=== PATIENT | female | born 1975 | race Caucasian/White ===

== ENCOUNTER 2022-05-27 14:18 | Inpatient (IN) | payer MEDICAID ==
[~2022-05-27] VITALS: Ht 162.6 cm; Wt 88.2 kg
[~2022-05-27 14:18] MED LIST: CLOZ100T68 PO; LITH300C3 PO; LITH600C PO; LURA80TA2 PO; NITR100C4 PO
[2022-05-29 06:21] VITALS: BP 124/78
[2022-05-29] MEDS ORDERED: INFLUENZA VIRUS VACCINE QVS 2022-23 (6MO+)/PF 60 MCG/0.5 ML SYRINGE IM. ONE (06:45)
[2022-05-29 08:51] LABS: GLUCOMETER DEV NAME(LOC) POC.BV
[2022-05-29] MEDS: LORazepam 2 MG TABLET PO PRN ×2 (08:59→17:46)
[2022-05-29] MEDS: LITHIUM CARBONATE 300 MG CAPSULE PO SCH (13:39)
[2022-05-29] MEDS ORDERED: MAGNESIUM HYDROXIDE SUSPENSION 30 ML UDCUP PO PRN (15:45)
[2022-05-29] MEDS ORDERED: MAG HYDROX/AL HYDROX/SIMETH ES 30 ML SUSPENSION UDCUP PO PRN (15:45)
[2022-05-29] MEDS ORDERED: PETROLATUM,WHITE 28 GM JELLY TP PRN (15:45)
[2022-05-29] MEDS ORDERED: ALBUTEROL SULFATE HFA 90 MCG/PUFF 8 GM INHALER IH PRN (15:45)
[2022-05-29] MEDS ORDERED: LOPERAMIDE HCL 2 MG CAPSULE PO PRN (15:45)
[2022-05-29] MEDS ORDERED: ACETAMINOPHEN 325 MG TABLET PO PRN (15:45)
[2022-05-29] MEDS ORDERED: CloNIDine HCL 0.1 MG TABLET PO PRN (15:45)
[2022-05-29] MEDS ORDERED: DOCUSATE SODIUM 100 MG CAPSULE PO PRN (15:45)
[2022-05-29] MEDS ORDERED: IBUPROFEN 400 MG TABLET PO PRN (15:45)
[2022-05-29] MEDS ORDERED: ONDANSETRON HCL 4 MG TABLET PO PRN (15:45)
[2022-05-29] MEDS ORDERED: GuaiFENesin/D-METHORPHAN [SUGAR-FREE] 200-20MG/10 ML SYRUP UDCUP PO PRN (15:45)
[2022-05-29] MEDS: NICOTINE 14 MG/24 HOUR PATCH TD PRN (17:43)
[2022-05-29 20:13] VITALS: BP 106/64
[2022-05-29] MEDS: LURASIDONE HCL 80 MG TABLET PO SCH (20:45)
[2022-05-29] MEDS: CloZAPine 100 MG TABLET PO SCH (20:45)
[2022-05-29] MEDS: LITHIUM CARBONATE 600 MG CAPSULE PO SCH (20:45)
[2022-05-29] MEDS: ZOLPIDEM TARTRATE 10 MG TABLET PO PRN (20:45)
[2022-05-30 07:28] LABS: BASOPHILS % (AUTO) 0.7 % (0.0-2.0); EOSINOPHILS % (AUTO) 0 % (1.0-6.0); HEMATOCRIT 34.9 % (36-46); HEMOGLOBIN 10.7 g/dL (12.0-16.0); LYMPHOCYTES # (AUTO) 1.4 K/uL (1.0-4.8); LYMPHOCYTES % (AUTO) 18.1 % (22.0-44.0); MEAN CORPUSCULAR HEMOGLOBIN 21.7 pg (26.0-34.0); MEAN CORPUSCULAR HGB CONC 30.8 G/dL (31.0-37.0); MEAN CORPUSCULAR VOLUME 71 fL (80-100); MONOCYTES # (AUTO) 0.8 K/uL (0.1-1.0); MONOCYTES % (AUTO) 9.8 % (2.0-9.0); NEUTROPHILS # (AUTO) 5.5 K/uL (1.8-7.7); NEUTROPHILS % (AUTO) 71.4 % (40.0-70.0); PLATELET COUNT (AUTO) 270 K/uL (150-450); RED BLOOD CELL COUNT(AUTO) 4.94 MIL/uL (4.00-5.20); RED CELL DISTRIBUTION WIDTH 18.5 % (11.5-14.5)
[2022-05-30] MEDS: LITHIUM CARBONATE 300 MG CAPSULE PO SCH (08:16)
[2022-05-30] MEDS: LORazepam 2 MG TABLET PO PRN (08:16)
[2022-05-30] MEDS: CloZAPine 100 MG TABLET PO SCH ×2 (08:16→20:11)
[2022-05-30 08:26] LABS: ALANINE AMINOTRANSFERASE 22 U/L (12-78); ALBUMIN 3.4 g/dL (3.4-5.0); ALKALINE PHOSPHATASE 72 U/L (46-116); ANION GAP 5 mmol/L (8-16); ASPARTATE AMINOTRANSFERASE 15 U/L (15-37); BILIRUBIN,TOTAL 0.2 mg/dL (0.1-1.0); CALCIUM, TOTAL 8.9 mg/dL (8.8-10.5); CARBON DIOXIDE 26 mmol/L (22-29); CHLORIDE 104 mmol/L (98-107); CHOL/HDL RATIO 2.3 (3.9-5.7); CHOLESTEROL 125 mg/dL (131-200); CREATININE 0.53 mg/dL (0.60-1.30); FREE T4 (FREE THYROXINE) 1.12 ng/dL (0.76-1.46); GLOMERULAR FILTR. RATE CALC > 60 mL/min (>60); GLUCOSE,RANDOM 96 mg/dL (70-110); HDL CHOLESTEROL 55 mg/dL (40-60); LDL CHOL (CALC.) 60 mg/dL (0-130); POTASSIUM 4.1 mmol/L (3.5-5.1); SODIUM SERUM 135 mmol/L (136-145); THYROID STIMULATING HORMONE 2.36 uIU/mL (0.36-3.74); TOTAL PROTEIN, SERUM 6.6 g/dL (6.4-8.2); TRIGLYCERIDES 48 mg/dL (15-150); UREA NITROGEN, BLOOD 11 mg/dL (7-18)
[2022-05-30 09:11] LABS: HEMOGLOBIN A1C 5.2 % (3.8-5.6)
[2022-05-30] MEDS: LURASIDONE HCL 80 MG TABLET PO SCH (20:11)
[2022-05-30] MEDS: LITHIUM CARBONATE 600 MG CAPSULE PO SCH (20:11)
[2022-05-30 20:17] VITALS: BP 118/76
[2022-05-31 08:47] VITALS: BP 120/84
[2022-05-31] MEDS: LITHIUM CARBONATE 300 MG CAPSULE PO SCH (08:53)
[2022-05-31] MEDS: CloZAPine 100 MG TABLET PO SCH ×2 (08:53→20:56)
[2022-05-31] MEDS: LORazepam 2 MG TABLET PO PRN ×2 (08:53→20:56)
[2022-05-31] MEDS: NICOTINE 14 MG/24 HOUR PATCH TD PRN (18:01)
[2022-05-31] MEDS: LURASIDONE HCL 80 MG TABLET PO SCH (20:56)
[2022-05-31] MEDS: ZOLPIDEM TARTRATE 10 MG TABLET PO PRN (20:56)
[2022-05-31] MEDS: LITHIUM CARBONATE 600 MG CAPSULE PO SCH (20:56)
[2022-06-01] MEDS ORDERED: NICOTINE 21 MG/24 HOUR PATCH TD PRN
[2022-06-01 01:44] VITALS: BP 149/77
[2022-06-01 08:46] VITALS: BP 106/68
[2022-06-01] MEDS: CloZAPine 100 MG TABLET PO SCH ×2 (09:23→20:03)
[2022-06-01] MEDS: LITHIUM CARBONATE 300 MG CAPSULE PO SCH (09:23)
[2022-06-01] MEDS: LURASIDONE HCL 80 MG TABLET PO SCH (20:03)
[2022-06-01] MEDS: LITHIUM CARBONATE 600 MG CAPSULE PO SCH (20:03)
[2022-06-01] MEDS: ZOLPIDEM TARTRATE 10 MG TABLET PO PRN (20:43)
[2022-06-01] MEDS: LORazepam 2 MG TABLET PO PRN (20:43)
[2022-06-02 08:35] VITALS: BP 91/52
[2022-06-02] MEDS: CloZAPine 100 MG TABLET PO SCH ×2 (08:37→20:03)
[2022-06-02] MEDS: LITHIUM CARBONATE 300 MG CAPSULE PO SCH (08:37)
[2022-06-02 10:00] VITALS: BP 108/64
[2022-06-02 20:03] VITALS: BP 105/63
[2022-06-02] MEDS: LURASIDONE HCL 80 MG TABLET PO SCH (20:03)
[2022-06-02] MEDS: LITHIUM CARBONATE 600 MG CAPSULE PO SCH (20:03)
[2022-06-02] MEDS: ZOLPIDEM TARTRATE 10 MG TABLET PO PRN (21:37)
[2022-06-03 08:10] VITALS: BP 105/61
[2022-06-03] MEDS: LITHIUM CARBONATE 300 MG CAPSULE PO SCH (08:32)
[2022-06-03] MEDS: CloZAPine 100 MG TABLET PO SCH (08:32)
[2022-06-03] MEDS: LORazepam 2 MG TABLET PO PRN (09:57)
[2022-06-03] MEDS ORDERED: CLOZ100T68 PO (11:08)
== END 2022-06-03 15:45 | disposition home or self-care (01) | DRG 750 ==
LOC: B3A 05-29 05:00
PROVIDERS: ADMIT Psychiatry & Neurology Child & Adolescent Psychiatry; ATTEND Psychiatry & Neurology Child & Adolescent Psychiatry
DX: F20.9 Schizophrenia, unspecified (principal); E03.9 Hypothyroidism, unspecified; E66.9 Obesity, unspecified; E78.5 Hyperlipidemia, unspecified; Z20.822 Contact with and (suspected) exposure to COVID-19; F19.10 Other psychoactive substance abuse, uncomplicated; Z68.33 Body mass index [BMI] 33.0-33.9, adult
CPT/HCPCS: 80053; 80061; 80178; 83036; 84439; 84443; 84703; 85025

== ENCOUNTER 2023-01-05 00:48 | Emergency (ER) | payer MEDICAID, OTHER ==
[~2023-01-05] VITALS: Ht 167.6 cm; Wt 80.0 kg
[~2023-01-05 00:48] MED LIST changes: -NITR100C4 PO
[2023-01-05 01:00] VITALS: BP 128/93; PULSE 67; RESP 18; TEMP 98.2
== END 2023-01-05 01:27 | disposition left against medical advice (07) ==
LOC: EMS 00:50
DX: F41.9 Anxiety disorder, unspecified (principal); Z53.21 Procedure and treatment not carried out due to patient leaving prior to being seen by health care provider
CPT/HCPCS: 99281; Z7502

== ENCOUNTER 2023-10-09 03:38 | Inpatient (IN) | payer MEDICAID ==
[~2023-10-09] VITALS: Ht 165.1 cm; Wt 74.8 kg
[~2023-10-09 03:38] MED LIST changes: +CLOZ100T12 PO; -CLOZ100T68 PO
[2023-10-09] MEDS ORDERED: LOPERAMIDE HCL 2 MG CAPSULE PO PRN ×2 (10:30→10:45)
[2023-10-09] MEDS ORDERED: CloNIDine HCL 0.1 MG TABLET PO PRN (10:30)
[2023-10-09] MEDS ORDERED: MAGNESIUM HYDROXIDE SUSPENSION 30 ML UDCUP PO PRN (10:30)
[2023-10-09] MEDS ORDERED: ACETAMINOPHEN 325 MG TABLET PO PRN (10:30)
[2023-10-09] MEDS ORDERED: DOCUSATE SODIUM 100 MG CAPSULE PO PRN (10:30)
[2023-10-09] MEDS ORDERED: IBUPROFEN 600 MG TABLET PO PRN (10:30)
[2023-10-09] MEDS ORDERED: BENZOCAINE/MENTHOL LOZENGE PO PRN (10:30)
[2023-10-09] MEDS ORDERED: ALBUTEROL SULFATE HFA 90 MCG/PUFF 8 GM INHALER IH PRN (10:30)
[2023-10-09] MEDS ORDERED: BACITRACIN 28 GM OINTMENT TP PRN (10:30)
[2023-10-09] MEDS ORDERED: PETROLATUM,WHITE 28 GM JELLY TP PRN (10:30)
[2023-10-09] MEDS ORDERED: ONDANSETRON HCL 4 MG TABLET PO PRN (10:30)
[2023-10-09] MEDS ORDERED: OMEPRAZOLE 20 MG CAPSULE PO PRN (10:30)
[2023-10-09] MEDS ORDERED: PROMETHAZINE HCL 25 MG TABLET PO PRN (10:45)
[2023-10-09] MEDS ORDERED: GuaiFENesin/D-METHORPHAN [SUGAR-FREE] 200-20MG/10 ML SYRUP UDCUP PO PRN (10:45)
[2023-10-09] MEDS ORDERED: TUBERCULIN, PURIFIED PROTEIN DERIVATIVE 5 TU/0.1 ML SYRINGE ID ONE (10:45)
[2023-10-09 14:26] VITALS: BP 103/75; PULSE 77; RESP 16; TEMP 97.8; O2SAT 100
[2023-10-09] MEDS: LORazepam 2 MG TABLET PO PRN (16:22)
[2023-10-09] MEDS: THIAMINE 100 MG TABLET PO SCH (16:26)
[2023-10-09 20:00] VITALS: BP 110/62; PULSE 89; RESP 17; TEMP 97.6; O2SAT 99
[2023-10-09] MEDS: DIVALPROEX SODIUM 500 MG ER TABLET PO SCH (21:16)
[2023-10-09] MEDS: MELATONIN 5 MG TABLET PO SCH (21:16)
[2023-10-09] MEDS: CloZAPine 100 MG TABLET PO SCH (21:16)
[2023-10-10 08:29] LABS: BASOPHILS % (AUTO) 0.7 % (0.0-2.0); EOSINOPHILS % (AUTO) 1.5 % (1.0-6.0); HEMATOCRIT 41.7 % (36-46); HEMOGLOBIN 13.6 g/dL (12.0-16.0); LYMPHOCYTES # (AUTO) 1.8 K/uL (1.0-4.8); LYMPHOCYTES % (AUTO) 27.5 % (22.0-44.0); MEAN CORPUSCULAR HEMOGLOBIN 29.5 pg (26.0-34.0); MEAN CORPUSCULAR HGB CONC 32.6 G/dL (31.0-37.0); MEAN CORPUSCULAR VOLUME 90 fL (80-100); MONOCYTES # (AUTO) 0.7 K/uL (0.1-1.0); MONOCYTES % (AUTO) 10.6 % (2.0-9.0); NEUTROPHILS % (AUTO) 59.7 % (40.0-70.0); PLATELET COUNT (AUTO) 312 K/uL (150-450); RED BLOOD CELL COUNT(AUTO) 4.62 MIL/uL (4.00-5.20); RED CELL DISTRIBUTION WIDTH 16.1 % (11.5-14.5); WHITE BLOOD COUNT (AUTO) 6.7 K/uL (4.5-11.0)
[2023-10-10 08:37] LABS: HEMOGLOBIN A1C 5.2 % (3.8-5.6)
[2023-10-10 08:54] VITALS: BP 125/76; PULSE 90; RESP 18; TEMP 97.8; O2SAT 97
[2023-10-10 08:58] LABS: ALANINE AMINOTRANSFERASE 22 U/L (12-78); ALBUMIN 2.8 g/dL (3.4-5.0); ALKALINE PHOSPHATASE 93 U/L (46-116); ANION GAP 6 mmol/L (8-16); ASPARTATE AMINOTRANSFERASE 16 U/L (15-37); BILIRUBIN,TOTAL 0.3 mg/dL (0.1-1.0); CALCIUM, TOTAL 8.5 mg/dL (8.8-10.5); CARBON DIOXIDE 27 mmol/L (22-29); CHLORIDE 104 mmol/L (98-107); CHOL/HDL RATIO 2.9 (3.9-5.7); CHOLESTEROL 140 mg/dL (131-200); CREATININE 0.61 mg/dL (0.60-1.30); FREE T4 (FREE THYROXINE) 1.09 ng/dL (0.76-1.46); GLOMERULAR FILTR. RATE CALC > 60 mL/min (>60); GLUCOSE,RANDOM 76 mg/dL (70-110); HCG,QUANTITATIVE < 1 mIU/mL (0-6); HDL CHOLESTEROL 49 mg/dL (40-60); LDL CHOL (CALC.) 75 mg/dL (0-130); POTASSIUM 4.1 mmol/L (3.5-5.1); SODIUM SERUM 137 mmol/L (136-145); THYROID STIMULATING HORMONE 1.44 uIU/mL (0.36-3.74); TOTAL PROTEIN, SERUM 6.5 g/dL (6.4-8.2); TRIGLYCERIDES 80 mg/dL (15-150); UREA NITROGEN, BLOOD 12 mg/dL (7-18)
[2023-10-10] MEDS: MULTIVITAMINS WITH MINERALS, THERAPEUTIC TABLET PO SCH (09:26)
[2023-10-10] MEDS: FOLIC ACID 1 MG TABLET PO SCH (09:26)
[2023-10-10 09:31] LABS: APPEARANCE,URINE TURBID (CLEAR); BILIRUBIN,URINE NEGATIVE (NEGATIVE); COLOR,URINE ORANGE (YELLOW); GLUCOSE, URINE (UA) NEGATIVE (NEGATIVE); KETONES,URINE NEGATIVE (NEGATIVE); LEUKOCYTE ESTERASE ,URINE SMALL (NEGATIVE); NITRATE,URINE NEGATIVE (NEGATIVE); OCCULT BLOOD,URINE TRACE (NEGATIVE); PH,URINE 5.5 (5.0-8.0); PROTEIN,URINE 30-70 mg/dL (NEGATIVE); SPECIFIC GRAVITIY, URINE 1.034 (1.003-1.030); UROBILINOGEN,URINE <=1.0 mg/dL (<=1.0)
[2023-10-10 09:53] LABS: RBC,URINE None Seen /HPF (0-2)
[2023-10-10 09:54] LABS: AMORPHOUS SEDIMENT,UR Many /LPF (None Seen); BACTERIA,URINE Few /HPF (None Seen); SQUAMOUS EPITHELIAL CELL,UR Few /LPF (None Seen); WBC,URINE 0-2 /HPF (0-5)
[2023-10-10] MEDS: LITHIUM CARBONATE 300 MG CAPSULE PO SCH (16:17)
[2023-10-10 19:50] LABS: GLUCOMETER DEV NAME(LOC) POC.BV; POC SARS-COV2 AG, FIA NEGATIVE (NEGATIVE)
[2023-10-10 20:43] VITALS: BP 114/86; PULSE 85; RESP 18; TEMP 98.4; O2SAT 100
[2023-10-11 08:47] VITALS: BP 120/86; PULSE 94; RESP 18; TEMP 97.5; O2SAT 97
[2023-10-11] MEDS ORDERED: CloZAPine 25 MG TABLET PO SCH (09:00)
[2023-10-11] MEDS: MAG HYDROX/ALUMINUM HYD/SIMETH ES 30 ML SUSPENSION UDCUP PO PRN (18:01)
[2023-10-11 20:20] VITALS: BP 111/81; PULSE 97; RESP 18; TEMP 97.4; O2SAT 98
[2023-10-12 08:41] VITALS: BP 118/67; PULSE 85; RESP 18; TEMP 98.1; O2SAT 96
[2023-10-12] MEDS ORDERED: CloZAPine 25 MG TABLET PO SCH ×2 (09:00→21:00)
[2023-10-12 20:36] VITALS: BP 119/50; PULSE 85; RESP 18; TEMP 98.3; O2SAT 97
[2023-10-12] MEDS: ZOLPIDEM TARTRATE 10 MG TABLET PO PRN (23:00)
[2023-10-13 08:12] LABS: ALCOHOL, URINE DRUG SCREEN NEGATIVE (NEGATIVE); AMPHET/METH SCREEN,URINE NEGATIVE (NEGATIVE); BARBITURATE SCREEN, URINE NEGATIVE (NEGATIVE); BENZODIAZEPINES SCREEN,URINE NEGATIVE (NEGATIVE); CANNABINOID SCREEN,URINE NEGATIVE (NEGATIVE); COCAINE SCREEN,URINE NEGATIVE (NEGATIVE); METHADONE SCREEN, URINE NEGATIVE (NEGATIVE); OPIATE SCREEN,URINE NEGATIVE (NEGATIVE); PHENCYCLIDINE SCREEN,URINE NEGATIVE (NEGATIVE)
[2023-10-13 08:28] VITALS: BP 114/66; PULSE 86; RESP 18; TEMP 98; O2SAT 98
[2023-10-13] MEDS ORDERED: CloZAPine 25 MG TABLET PO SCH ×2 (09:00→21:00)
[2023-10-13 20:38] VITALS: BP 112/81; PULSE 94; RESP 18; TEMP 98.4; O2SAT 98
[2023-10-14 08:50] VITALS: BP 108/67; PULSE 86; RESP 17; TEMP 97.7; O2SAT 97
[2023-10-14] MEDS ORDERED: CloZAPine 25 MG TABLET PO SCH (09:00)
[2023-10-14 20:41] VITALS: BP 104/71; PULSE 87; RESP 16; TEMP 97.7; O2SAT 98
[2023-10-15 09:12] VITALS: BP 108/65; PULSE 75; RESP 17; TEMP 96.7; O2SAT 97
[2023-10-15 19:06] LABS: CLOZAPINE & NORCLOZAPINE 71 ng/mL; NORCLOZAPINE 28 ng/mL (Not Estab.)
[2023-10-16] MEDS ORDERED: CloZAPine 25 MG TABLET PO SCH (09:00)
[2023-10-16] MEDS ORDERED: CloZAPine 100 MG TABLET PO SCH (21:00)
[2023-10-17] MEDS ORDERED: CloZAPine 25 MG TABLET PO SCH (09:00)
[2023-10-17] MEDS ORDERED: CloZAPine 100 MG TABLET PO SCH (21:00)
[2023-10-18] MEDS ORDERED: CloZAPine 25 MG TABLET PO SCH (09:00)
[2023-10-18] MEDS ORDERED: CloZAPine 100 MG TABLET PO SCH (21:00)
[2023-10-19] MEDS ORDERED: CloZAPine 100 MG TABLET PO SCH (09:00)
[2023-10-21] MEDS ORDERED: CloZAPine 25 MG TABLET PO SCH (09:00)
[2023-10-21] MEDS ORDERED: CloZAPine 100 MG TABLET PO SCH (21:00)
[2023-10-22] MEDS ORDERED: CloZAPine 25 MG TABLET PO SCH (09:00)
[2023-10-22] MEDS ORDERED: CloZAPine 100 MG TABLET PO SCH (21:00)
[2023-10-23] MEDS ORDERED: CloZAPine 100 MG TABLET PO SCH ×2 (09:00→21:00)
== END 2023-10-15 11:55 | disposition home or self-care (01) | DRG 750 ==
LOC: B2S 07:10
PROVIDERS: ADMIT Psychiatry & Neurology Psychiatry; ATTEND Psychiatry & Neurology Psychiatry
PROC: GZHZZZZ Group Psychotherapy (ICD-10-PCS; principal; 2023-10-09)
PROC: GZ51ZZZ Individual Psychotherapy, Behavioral (ICD-10-PCS; 2023-10-09)
PROC: GZ58ZZZ Individual Psychotherapy, Cognitive-Behavioral (ICD-10-PCS; 2023-10-09)
DX: F25.9 Schizoaffective disorder, unspecified (principal); E03.9 Hypothyroidism, unspecified; E78.00 Pure hypercholesterolemia, unspecified; K21.9 Gastro-esophageal reflux disease without esophagitis; K59.00 Constipation, unspecified; Z20.822 Contact with and (suspected) exposure to COVID-19; F17.210 Nicotine dependence, cigarettes, uncomplicated; F41.9 Anxiety disorder, unspecified; I10 Essential (primary) hypertension; G47.00 Insomnia, unspecified; F15.90 Other stimulant use, unspecified, uncomplicated; J44.9 Chronic obstructive pulmonary disease, unspecified; Z79.899 Other long term (current) drug therapy
CPT/HCPCS: 80053; 80061; 80159; 80178; 80307; 81001; 83036; 84439; 84443; 84702; 85025; 86592